=== PATIENT | female | born 1965 | race Two or more races ===

== ENCOUNTER 2017-03-14 15:46 | Emergency (ER) | payer SELFPAY ==
[~2017-03-14] VITALS: Ht 160 cm; Wt 63.0 kg
[2017-03-14] MEDS ORDERED: IBUP-1653 PO (16:18)
[2017-03-14] MEDS ORDERED: IBUPROFEN 600MG TABLET PO STA (19:14)
[2017-03-14 19:39] LABS: BASOPHILS % 0.8 % (0.0-2.0); EOSINOPHILS % 3.9 % (0.0-5.0); HEMATOCRIT. 39.4 % (36.0-48.0); HEMOGLOBIN. 13.4 g/dL (12.0-16.0); LYMPHOCYTES % 47.6 % (20.0-50.0); MEAN CORPUSCULAR HEMOGLOBIN 29.1 pg (28.0-32.0); MEAN CORPUSCULAR VOLUME 85.2 fL (81.0-99.0); MEAN PLATELET VOLUME 8.3 fl (7.4-10.4); MONOCYTES % 5.5 % (2.0-8.0); NEUTROPHILS % 42.2 % (40.0-76.0); PLATELET 295 x1000/uL (130-400); RED BLOOD CELL COUNT 4.62 mill/uL (4.2-5.4); RED CELL DISTRIBUTION WIDTH 13.7 % (11.6-14.6)
[2017-03-14 19:41] LABS: CHLORIDE 106 mEq/L (98-107)
[2017-03-14 19:43] LABS: PROTHROMBIN TIME 10.5 sec (9.4-11.6)
[2017-03-14 19:47] LABS: CARBON DIOXIDE 27 mEq/L (21-32)
[2017-03-14 20:05] LABS: HCG SCREEN NEGATIVE
[2017-03-14 20:20] LABS: CLARITY URINE CLEAR (CLEAR); COLOR URINE YELLOW (YELLOW); KETONES URINE NEGATIVE (NEGATIVE); LEUKOCYTE ESTERASE URINE 2+ (NEGATIVE); NITRITE URINE NEGATIVE (NEGATIVE); OCCULT BLOOD URINE NEGATIVE (NEGATIVE); PH URINE 6.5 (4.5-8.0); PROTEIN URINE NEGATIVE (NEGATIVE); SPECIFIC GRAVITY URINE 1.006 (1.005-1.030); UROBILINOGEN URINE 0.2 E.U./dL (0.2-1.0)
[2017-03-14 22:30] VITALS: BP 111/67
== END 2017-03-14 22:32 | disposition home or self-care (01) ==
LOC: ER 16:24
DX: D25.9 Leiomyoma of uterus, unspecified (principal); Z88.0 Allergy status to penicillin
CPT/HCPCS: 36415; 76830; 76856; 80053; 81001; 84703; 85025; 85610; 99285; Z7610

== ENCOUNTER 2017-10-12 12:54 | Emergency (ER) | payer MEDICAID ==
[~2017-10-12] VITALS: Ht 160 cm; Wt 63.0 kg
[~2017-10-12 12:54] MED LIST: IBUP-1653 PO
[2017-10-12] MEDS ORDERED: ALBUTEROL (0.083%) 2.5MG/3ML NEB HHN STA (13:31)
[2017-10-12] MEDS ORDERED: KETOROLAC 30MG/ML VIAL IV ONE (13:45)
[2017-10-12 14:47] LABS: BASOPHILS % 0.3 % (0.0-2.0); EOSINOPHILS % 4.5 % (0.0-5.0); HEMATOCRIT. 39.4 % (36.0-48.0); HEMOGLOBIN. 13.2 g/dL (12.0-16.0); LYMPHOCYTES % 57.7 % (20.0-50.0); MEAN CORPUSCULAR HEMOGLOBIN 28.5 pg (28.0-32.0); MEAN CORPUSCULAR VOLUME 84.8 fL (81.0-99.0); MEAN PLATELET VOLUME 8.4 fl (7.4-10.4); MONOCYTES % 5.8 % (2.0-8.0); NEUTROPHILS % 31.7 % (40.0-76.0); PLATELET 256 x1000/uL (130-400); RED BLOOD CELL COUNT 4.64 mill/uL (4.2-5.4); RED CELL DISTRIBUTION WIDTH 14.4 % (11.6-14.6)
[2017-10-12 14:52] LABS: CHLORIDE 111 mEq/L (98-107)
[2017-10-12 15:34] VITALS: BP 111/70
== END 2017-10-12 15:38 | disposition home or self-care (01) ==
LOC: ER 15:18
DX: J20.8 Acute bronchitis due to other specified organisms (principal); E78.5 Hyperlipidemia, unspecified; Z88.0 Allergy status to penicillin
CPT/HCPCS: 36415; 71045; 80053; 83880; 84484; 85025; 85610; 93005; 94640; 96374; 99285; J1885; J7611

== ENCOUNTER 2017-12-28 03:22 | Emergency (ER) | payer OTHER ==
[~2017-12-28] VITALS: Ht 160 cm; Wt 63.0 kg
[2017-12-28 03:31] VITALS: BP 122/79
== END 2017-12-28 06:25 | disposition left against medical advice (07) ==
LOC: ER 04:15
DX: R42 Dizziness and giddiness (principal); Z53.21 Procedure and treatment not carried out due to patient leaving prior to being seen by health care provider

== ENCOUNTER 2021-10-03 17:06 | Emergency (ER) | payer OTHER ==
[~2021-10-03] VITALS: Ht 160 cm; Wt 63.0 kg
[~2021-10-03 17:06] MED LIST changes: +ATOR20TA PO; -IBUP-1653 PO; +LORA5TAB8 PO
[2021-10-03 17:09] VITALS: BP 122/80
== END 2021-10-03 18:58 | disposition left against medical advice (07) ==
LOC: ER 17:06
DX: Z53.21 Procedure and treatment not carried out due to patient leaving prior to being seen by health care provider (principal)